=== PATIENT | male | born 1970 | race Caucasian/White ===

== ENCOUNTER 2019-05-18 10:20 | Day surgery (SDC) | payer BC ==
[~2019-05-18] VITALS: Ht 190.5 cm; Wt 118.9 kg
[~2019-05-18 10:20] MED LIST: HEPARIN 1,000 UNITS/ML, 10ML ONE
[2019-05-18] MEDS ORDERED: FENTANYL PF 100 MCG/2ML ONE ×2 (11:29→13:26)
[2019-05-18] MEDS ORDERED: MIDAZOLAM 1 MG/ML, 2ML ONE (11:29)
[2019-05-18 11:46] VITALS: BP 135/97
[2019-05-18] MEDS ORDERED: SODIUM CHLORIDE 0.9% 1,000 ML IV SCH (11:52)
[2019-05-18] MEDS ORDERED: CEFAZOLIN 1,000 MG ONE (13:12)
[2019-05-18] MEDS ORDERED: ONDANSETRON 2MG/ML, 2ML ONE (13:12)
[2019-05-18] MEDS ORDERED: DEXAMETHASONE 4 MG/ML, 1ML ONE (13:12)
[2019-05-18] MEDS ORDERED: PROPOFOL 10 MG/ML, 20ML ONE (13:12)
[2019-05-18] MEDS ORDERED: LIDOCAINE 2% 100MG/5ML SYRINGE ONE (13:13)
[2019-05-18] MEDS ORDERED: BUPIVACAINE/PF 0.5% ONE (13:19)
[2019-05-18] MEDS ORDERED: EPINEPHRINE 1 MG/ML, 1ML ONE (13:19)
[2019-05-18] MEDS ORDERED: PROMETHAZINE 25 MG SUPP PR PRN (13:30)
[2019-05-18] MEDS ORDERED: OXYcodone 5 MG/5 ML ORAL.SOL UDC PO PRN (13:30)
[2019-05-18] MEDS ORDERED: PROMETHAZINE 25 MG/ML, 1ML IV PRN (13:30)
[2019-05-18] MEDS ORDERED: ACETAMINOPHEN 325 MG TABLET PO PRN (13:30)
[2019-05-18] MEDS ORDERED: FENTANYL PF 100 MCG/2ML IV PRN (13:30)
[2019-05-18] MEDS ORDERED: HYDROmorphone 2 MG/ML, 1ML IVPush PRN (13:30)
[2019-05-18] MEDS ORDERED: ONDANSETRON ODT 8 MG PO PRN (13:30)
[2019-05-18] MEDS ORDERED: ONDANSETRON 2MG/ML, 2ML IV PRN (13:30)
[2019-05-18] MEDS ORDERED: EPHEDRINE 50 MG/ML, 1ML ONE (13:32)
== END 2019-05-18 15:10 | disposition home or self-care (01) ==
LOC: OR 10:20
PROVIDERS: ATTEND Surgery Vascular Surgery
DX: I12.0 Hypertensive chronic kidney disease with stage 5 chronic kidney disease or end stage renal disease (principal); N18.6 End stage renal disease
CPT/HCPCS: 36415; 49436; J0171; J0690; J1100; J1644; J2250; J2405; J2704; J3010